=== PATIENT | female | born 1995 | race Caucasian/White ===

== ENCOUNTER 2017-03-23 11:37 | Emergency (ER) | payer MEDICAID ==
[~2017-03-23] VITALS: Ht 160 cm; Wt 72.3 kg
[~2017-03-23 11:37] MED LIST: ACET650S53 GT; IBUP-1842 PO
[2017-03-23 12:25] VITALS: BP 122/66
--- NOTE | 2017-03-23 12:31 | NUR ---
PER DR KLEIN PT SEND TO THE LOBBY
--- NOTE | 2017-03-23 13:04 | NUR ---
PATIENT AMBULATED TO BED 1
[2017-03-23 13:30] LABS: BASOPHILS # (AUTO) 0.3 K/uL (0.00-0.22); BASOPHILS % (AUTO) 4.8 % (0.0-2.0); EOSINOPHILS # (AUTO) 0.2 K/uL (0-0.4); EOSINOPHILS % (AUTO) 2.6 % (0.0-4.0); HEMATOCRIT 41.4 % (36-48); HEMOGLOBIN 13.9 g/dL (12.0-16.0); LYMPHOCYTES # (AUTO) 2.1 K/uL (2.5-16.5); LYMPHOCYTES % (AUTO) 34.5 % (20.5-51.1); MEAN CORPUSCULAR HEMOGLOBIN 30 pg (27-31); MEAN CORPUSCULAR HGB CONC 34 g/dL (33-37); MEAN CORPUSCULAR VOLUME 89 fL (80-94); MONOCYTES # (AUTO) 0.6 K/uL (0.8-1.0); MONOCYTES % (AUTO) 9.1 % (1.7-9.3); PLATELET COUNT (AUTO) 264 K/uL (140-450); RED BLOOD CELL COUNT(AUTO) 4.65 MIL/uL (4.20-5.40); RED CELL DISTRIBUTION WIDTH 11.9 % (11.6-13.7); WHITE BLOOD COUNT (AUTO) 6.2 K/uL (4.8-10.8)
--- NOTE | 2017-03-23 13:30 | NUR ---
PATIENT PRESENTS TO ED WITH C/O VAGINAL BLEED WITH ABDOMINAL PAIN 11/13 SINCE YESTERDAY; 8 WKS A0; DENIES N/V/D; SKIN IS PINK/WARM/DRY; AAOX4 WITH EVEN AND STEADY GAIT; LUNGS CLEAR BL; HR EVEN AND REGULAR; PT DENIES ANY FEVER, CP, SOB, OR COUGH AT THIS TIME;PATIENT POSITIONED FOR COMFORT; HOB ELEVATED; BEDRAILS UP X2; BED DOWN. ER MD MADE AWARE OF PT STATUS.
--- NOTE | 2017-03-23 14:20 | NUR ---
us at bedside.
[2017-03-23 14:28] LABS: BILIRUBIN,URINE 1+ (NEGATIVE); BLOOD, URINE 3+ (NEGATIVE); LEUKOCYTE ESTERASE ,URINE NEGATIVE (NEGATIVE); NITRITE, URINE NEGATIVE (NEGATIVE); PH,URINE 7.5 (5.0-9.0); UGLUCOSE NEGATIVE (NEGATIVE)
[2017-03-23 14:47] LABS: APPEARANCE,URINE BLOODY (CLEAR); COLOR,URINE RED (YELLOW); RBC,URINE TOO NUMEROUS TO COUN /HPF (0-5); WBC,URINE 0-5 (RARE) /HPF (0-5)
--- NOTE | 2017-03-23 15:02 | NUR ---
Chilo benoit in ED - 03/23/17 at 1509 by TRELL VERBAL ORDER OF NORCO 10 MG;
[2017-03-23 15:58] VITALS: BP 105/72
--- NOTE | 2017-03-23 15:59 | NUR ---
Patient discharged with v/s stable. Written and verbal after care instructions given and explained. Patient verbalized understanding. Ambulatory with steady gait. All questions addressed prior to discharge. Advised to follow up with PMD.
== END 2017-03-23 15:59 | disposition home or self-care (01) ==
LOC: MED 11:37
DX: O02.0 Blighted ovum and nonhydatidiform mole (principal); Z79.899 Other long term (current) drug therapy; Z88.5 Allergy status to narcotic agent
CPT/HCPCS: 36415; 76801; 81001; 84702; 85025; 86900; 86901; 99285